=== PATIENT | male | born 2000 | race Caucasian/White ===

== ENCOUNTER 2018-05-08 04:55 | Inpatient (IN) | payer OTHER ==
[~2018-05-08] VITALS: Ht 180.3 cm; Wt 99.3 kg
[2018-05-08] VITALS (59 sets, daily range): BP systolic 59–219; BP diastolic 31–125
--- NOTE | 2018-05-08 04:55 | NUR ---
PT [facility] BLS. TAKEN TO BED 6
--- NOTE | 2018-05-08 05:00 | NUR ---
ASSUMED CARE OF PT AT THIS TIME. PT BIBA AND RECEIVED TO BED 6 VIA GURNEY. C/O ALOC AND DIAPHORESIS UPON WAKING X 30 MINUTES AGO. PT IS A&OX4, ANSWERS ALL QUESTIONS APPROPRIATELY, AND DENIES ANY NEURO COMPLAINTS, ANY CP, OR SOB. PATIENT STATES PAIN OF 0/10; VSS; PATIENT POSITIONED FOR COMFORT; HOB ELEVATED; BEDRAILS UP X2; BED DOWN. ER MD MADE AWARE OF PT STATUS. WILL CONTINUE TO MONITOR.
[2018-05-08] MEDS ORDERED: ONDANSETRON 4 MG/2 ML VIAL IVP ONE (05:05)
[2018-05-08] MEDS ORDERED: NACL 0.9% 1,000 ML IV ONE (05:05)
--- NOTE | 2018-05-08 05:16 | NUR ---
EKG PERFORMED AT BEDSIDE. PT COVERED IN GOWN. NORMAL SINUS RHYTHM
[2018-05-08 05:31] LABS: HEMATOCRIT 42.6 % (36-52); HEMOGLOBIN 14.4 g/dL (12.0-18.0); MEAN CORPUSCULAR HEMOGLOBIN 30 pg (27-31); MEAN CORPUSCULAR HGB CONC 34 g/dL (33-37); MEAN CORPUSCULAR VOLUME 88.8 fL (80-94); PLATELET COUNT (AUTO) 195 K/uL (140-450); RED BLOOD CELL COUNT(AUTO) 4.79 MIL/uL (4.20-6.10); RED CELL DISTRIBUTION WIDTH 13.1 % (11.6-13.7); WHITE BLOOD COUNT (AUTO) 9.1 K/uL (4.5-11.0)
[2018-05-08 05:35] LABS: APPEARANCE,URINE CLEAR (CLEAR); BILIRUBIN,URINE NEGATIVE (NEGATIVE); BLOOD, URINE 1+ (NEGATIVE); COLOR,URINE YELLOW (YELLOW); LEUKOCYTE ESTERASE ,URINE NEGATIVE (NEGATIVE); NITRITE, URINE NEGATIVE (NEGATIVE); UGLUCOSE TRACE (NEGATIVE)
[2018-05-08 05:41] LABS: BARBITURATE, URINE NEG. ng/ml (NEG <=200); BENZODIAZEPINE, URINE NEG. ng/mL (NEG <=200); CANNABINOID, URINE POS. ng/mL (NEG <=50); COCAINE, URINE NEG. ng/mL (NEG <=300); OPIATE, URINE NEG. ng/mL (NEG <=2000); PHENCYCLIDINE SCREEN,URINE NEG. ng/mL (NEG <=25)
[2018-05-08 05:48] LABS: ALBUMIN 4.6 g/dL (3.4-5.0); ANION GAP 20.3 (8-16); CARBON DIOXIDE 19.3 mmol/L (21-32); POTASSIUM 3.6 mmol/L (3.5-5.1); TOTAL BILIRUBIN 0.2 mg/dL (0.0-1.0)
[2018-05-08 05:53] LABS: RBC,URINE 0-5 (RARE) /HPF (0-5); WBC,URINE 0-5 (RARE) /HPF (0-5)
[2018-05-08 06:13] LABS: EOSINOPHILS % (MANUAL) 4 % (0-4); LYMPHOCYTES % (MANUAL) 25 % (20-46); MONOCYTES % (MANUAL) 5 % (5-12)
[2018-05-08] MEDS ORDERED: LORazepam 2 MG/ML VIAL IVP ONE ×4 (06:20→07:10)
--- NOTE | 2018-05-08 06:20 | NUR ---
PT HAD WITNESSED SZ X 1 MINUTE. RN, EMT, MD AT BEDSIDE, PT ADMINISTERED O2 VIA NRB MASK. SUCTION NEEDED. PT GIVEN IV ATIVAN PER MD ORDERS. WILL CONTINUE TO MONITOR.
--- NOTE | 2018-05-08 06:20 | NUR ---
Dr. Johnson evaluating patient at bedside.
--- NOTE | 2018-05-08 06:20 | NUR ---
GEORGIE GALVAN WAS CALLED. ATTENDED AND HELPED HOLD DOWN PT IN BED WITH RNS AND SECURITY. FAMILY AT BEDSIDE. PT ON FIO2 100% NRB MASK SPO2 95-98%.
[2018-05-08] MEDS ORDERED: LORazepam 2 MG/ML VIAL ONE ×2 (06:24→06:41)
--- NOTE | 2018-05-08 06:30 | NUR ---
PT EXTREMELY COMBATIVE IN POST-ICTAL STATE. PT IS ALTERED AND UNCOOPERATIVE. PT UNABLE TO FOLLOW SIMPLE COMMANDS. PT RESTRAINED X 4. PLEASE SEE RESTRAINT FLOW SHEET.
[2018-05-08] MEDS ORDERED: HALOPERIDOL IM 5 MG/ML VIAL ONE (06:35)
[2018-05-08] MEDS ORDERED: diphenhydrAMINE 50 MG/ML VIAL ONE ×2 (06:36→06:40)
[2018-05-08] MEDS ORDERED: HALOPERIDOL IM 5 MG/ML VIAL IM ONE ×2 (06:40→07:05)
[2018-05-08] MEDS ORDERED: diphenhydrAMINE 50 MG/ML VIAL IM ONE (06:40)
[2018-05-08] MEDS ORDERED: LORazepam 2 MG/ML VIAL IM/IVP ONE (06:40)
--- NOTE | 2018-05-08 07:08 | NUR ---
Dr. Blake evaluating patient at bedside.
--- NOTE | 2018-05-08 07:10 | NUR ---
REPORT GIVEN TO BIBI YEE TO ASSUME CARE.
[2018-05-08] MEDS ORDERED: SUCCINYLCHOLINE CHLORIDE 200 MG/10 ML VIAL IVP ONE (07:12)
[2018-05-08] MEDS ORDERED: ETOMIDATE 20 MG/10 ML VIAL IVP ONE (07:12)
--- NOTE | 2018-05-08 07:15 | NUR ---
ASSISTED WITH INTUBATION WITH MD JEWELL AND KELSEY PANDEY. PT IS INTUBATED WITH 7.5 ETT AT 26 CM AT LIP. SETTINGS CHARTED. ETT IS IN PLACE AND SECURED WITH ANCHORFAST. VENT IS CONNECTED TO RED OUTLET ALARMS AUDIBLE. AMBU BAG AT BEDSIDE. SXN'D SCANT AMT OF THIN CLEAR SECRETION. NO SOB OR DISTRESS NOTED.
[2018-05-08] MEDS ORDERED: PROPOFOL 200 MG/20 ML VIAL IV ONE (07:20)
[2018-05-08] MEDS ORDERED: PROPOFOL 1000 MG/100 ML PREMIX 100 ML IV ONE ×3 (07:27→13:20)
[2018-05-08] MEDS ORDERED: VANCOMYCIN 1,000 MG in DEXTROSE 5% 250 ML IV ONE (07:30)
[2018-05-08] MEDS ORDERED: DEXAMETHASONE 10 MG/ML VIAL IVP ONE (07:30)
--- NOTE | 2018-05-08 07:50 | NUR ---
ABG DRAWN WITH NO INCIDENT. RESULTS GIVEN VERBALLY TO MD JEWELL AND ON [facility].
--- NOTE | 2018-05-08 07:50 | NUR ---
ABG DRAWN WITH NO INCIDENT. RESULTS GIVEN VERBALLY TO MD JEWELL AND ON [facility] [facility].
--- NOTE | 2018-05-08 07:54 | NUR ---
PATIENT INTUBATED PER DR JEWELL PROPOFOL DRIP STARTED
[2018-05-08] MEDS ORDERED: VANCOMYCIN 1,000 MG VIAL ONE (08:03)
[2018-05-08] MEDS ORDERED: DEXAMETHASONE 4 MG/ML VIAL ONE (08:10)
[2018-05-08 08:24] LABS: SALICYLATE 3.4 mg/dL (2.8-20.0)
[2018-05-08 08:25] LABS: ACETAMINOPHEN < 0.5 ug/ml (10-30)
--- NOTE | 2018-05-08 08:30 | NUR ---
PATIENT TRANSFERRED TO RADIOLOGY FOR CT SCAN OF THE HEAD REMOVED FROM VENTILATOR PLACED ON A AMBU BAG TO INLINE SUCTION CATHETER/ENDOTRACHEAL TUBE WITH SUPPLEMENTAL OXYGEN AT 15 LPM VIA E-TANK WITH ADEQUATE PSI LEVEL AMBU BAG DEPRESSED EVERY 6 SECONDS HR 114 SATURATION 99% TOLERATED PROCEDURE WELL WITHOUT INCIDENT
--- NOTE | 2018-05-08 08:31 | NUR ---
Patient taken to CT via gurney with portable monitor. Accompanied by Tal RN, Ruslan RT, Samantha EMT, Nguyen machine stitcher, Rhianna copier repair technician
--- NOTE | 2018-05-08 08:39 | NUR ---
REPORTED GIVEN TO LEEANN MTZ.
[2018-05-08 08:46] LABS: CREATINE KINASE MB 3.3 ng/mL (0-3.6)
[2018-05-08] MEDS ORDERED: NACL 0.9% 250 ML IV ONE (08:55)
[2018-05-08] MEDS ORDERED: LIDOCAINE 1% 50 ML ONE (09:46)
[2018-05-08] MEDS ORDERED: LACTULOSE 20 GM/30 ML UDC NG ONE (10:20)
--- NOTE | 2018-05-08 10:33 | NUR ---
VENT SETTINGS: A/C VC VT 500ML FIO 70 RATE 14 FLOW 45 PEEP 5 PMAX 40
[2018-05-08 10:41] LABS: CSF GLUCOSE 114 mg/dL (40-70); CSF PROTEIN 53.7 mg/dL (15-45)
[2018-05-08] MEDS ORDERED: ACETAMINOPHEN 325 MG TAB PO PRN (10:55)
[2018-05-08] MEDS ORDERED: ONDANSETRON 4 MG/2 ML VIAL IVP PRN (10:55)
[2018-05-08] MEDS ORDERED: VANCOMYCIN PER PHARMACY MC PRN (10:55)
[2018-05-08] MEDS ORDERED: ALBUTEROL 0.083% 2.5 MG/3 ML NEBU IH PRN (10:55)
--- NOTE | 2018-05-08 10:57 | NUR ---
Patient being reevaluated by DR JEWELL at bedside.
--- NOTE | 2018-05-08 11:00 | NUR ---
FIO2 DECREASED TO 40%. SPO2 IS 100%. NO SOB OR DISTRESS NOTED.
--- NOTE | 2018-05-08 11:05 | NUR ---
Patient will be admitted to care of DR. GAUTHIER. Admited to ICU. Will go to rooM 5. Belongings list completed. Report to BIBI SIMS. pt still seems aggitated and vss at time of admit to icu.
--- NOTE | 2018-05-08 11:15 | NUR ---
RECEIVED PATIENT FROM ED. RECEIVED REPORT FROM ED NURSE. PATIENT SEDATED WITH PROPOFOL RUNNING AT 25MCG. 4POINT SOFT RESTRAINTS IN PLACE. SKIN WARM DRY AND INTACT. LUNGS CLEAR BILATERALLY. BOWEL SOUNDS PRESENT AND ACTIVE x4. VSS. MOTHER AND GIRLFRIEND AT BEDSIDE. WILL CONTINUE TO MONITOR.
--- NOTE | 2018-05-08 11:26 | NUR ---
VENT CHECKED. DECREASED FIO2 TO 60%. WILL CONTINUE TO MONITOR.
[2018-05-08] MEDS ORDERED: levETIRAcetam 1,000 MG in NACL 0.9% 100 ML IV SCH (11:55)
--- NOTE | 2018-05-08 12:00 | NUR ---
DR. GAUTHIER IN, SEEN AND EXAMINED PATIENT. WILL FOLLOW UP WITH ORDERS.
[2018-05-08] MEDS: DEXT 5% /NACL 0.9% 1,000 ML IV SCH ×2 (12:18→22:39)
--- NOTE | 2018-05-08 12:22 | NUR ---
UNABLE TO DO ABG BECAUSE PT IS HAVING EEG. WILL DO IT AFTER. NO SOB OR DISTRESS NOTED.
--- NOTE | 2018-05-08 12:27 | NUR ---
CUSTOMER TRAINER AT BEDSIDE
--- NOTE | 2018-05-08 13:05 | NUR ---
SENT A PAGE TO DR. GLASGOW REGARDING PROPOFOL DRIP. WILL AWAIT FOR CALL BACK.
--- NOTE | 2018-05-08 13:12 | NUR ---
DR. GLASGOW CALLED BACK WITH ORDERS TO START PATIENT ON FENTANYL DRIP INSTEAD AND ADDED VERSED 2MG IV PRN FOR AGITATION. ORDERS TRANSCRIBED AND CARRIED OUT.
[2018-05-08] MEDS ORDERED: MIDAZOLAM 2 MG/2 ML VIAL IV PRN (13:15)
[2018-05-08] MEDS: LORazepam 2 MG/ML VIAL IVP PRN ×3 (13:31→20:20)
--- NOTE | 2018-05-08 13:53 | NUR ---
ABG DONE WITH NO INCIDENT. RESULTS GIVEN VERBALLY TO MD GLASGOW. NO SOB OR DISTRESS NOTED. FAMILY AT BEDSIDE. WILL CONTINUE TO MONITOR.
--- NOTE | 2018-05-08 13:54 | NUR ---
FIO2 DECREASED TO 28 % SPO2 IS 100%
--- NOTE | 2018-05-08 14:00 | NUR ---
DR WHITTAKER AT BEDSIDE SPEAKING WITH PT FAMILY
[2018-05-08] MEDS: fentaNYL 1 MG in NACL 0.9% 80 ML IV SCH (15:09)
--- NOTE | 2018-05-08 15:30 | NUR ---
PT TAKEN OFF SOFT ANKLE RESTRAINTS. TOLERATING WELL. WILL CONTINUE TO MONITOR.
[2018-05-08] MEDS: VANCOMYCIN 1,250 MG in DEXTROSE 5% 250 ML IV SCH (16:19)
--- NOTE | 2018-05-08 19:17 | NUR ---
GAVE REPORT TO MAGALY FOR CONTINUITY OF CARE THROUGH THE NIGHT. PATIENT STABLE AT THIS TIME.
--- NOTE | 2018-05-08 19:30 | NUR ---
RECEIVED REPORT FROM LEVI MTZ AM SHIFT. PT IS SEDATED. PT INTUBATED,ETT TO VENT WITH VENT SETTING AC RATE 14,TV 400,FIO2 28% AND PEEP 5, NO S/S OF RESP DISTRESS AT THIS TIME, BILATERAL LUNGS CLEAR. SR ON MONITOR. IV TO RIGHT FOREARM NO 22 WITH FENTANYL RUNNING AT 93 MCG/HR TO KEEP RASS -1 AND D5% IN NS AT 100 CC/HR, IV LINE TO RIGHT FOOT NO 20 AND LEFT HAND NO 20. NO S/S OF INFILTRATION NOTED. PT IS NPO EXCEPT MEDS PER REPORT. NGT TO RIGHT NARES. SKIN WARM TO TOUCH.ABD SOFT NON DISTENDED. SKIN INTACT. F/C IN PLACE WITH YELLOW CLEAR URINE. GENTLE CARE GIVEN. KEPT PT CLEAN AND DRY. PT IS ON RESTRAIN D/T EPISODE OF AGITATION PER REPORT .CONT TO CLOSE MONITORING. Addendum: 05/08/18 at 1954 by Mackenzie Strickland RN TV [phone]
--- NOTE | 2018-05-08 20:10 | NUR ---
THE GIRL FRIEND COME TO VISIT. REMIND THE GIRL FRIEND TO LET PT REST AT THIS TIME.
--- NOTE | 2018-05-08 20:15 | NUR ---
PT IS AWAKE WHEN SAW THE GIRL FRIEND AND START TRYING TO GET OUT OF BED , PT IS WITH EPISODE AGITATION AND ANXIETY. ATIVAN 2MG IVP SLOWLY GIVEN.MONITOR PT CLOSELY. 2 NURSE HOLD PT ON BED AT THIS TIME.
--- NOTE | 2018-05-08 20:20 | NUR ---
PT MORE AGITATED AND CALLED FOR HELP. SECURITY COME TO HELP. ATIVAN GIVEN IVP SLOWLY ORDER FOR AGITATION. PT IS AT RISK TO SELF EXTUBATION.PT ON BOTH HAND RESTRAINT
[2018-05-08] MEDS: MORPHINE SULFATE 2 MG/ML SYR IVP PRN (20:30)
--- NOTE | 2018-05-08 20:30 | NUR ---
PLACED CODE MANCUSO PT IS VERY AGITATED. ER NURSE AND RT COME TO HELP .10 NURSE HOLD PT ON THE BED. PT IS VERY COMBATIVE DIAPHORETIC AND TACHYCARDIA . MORPHINE IV PUSH GIVEN ORDER.
[2018-05-08] MEDS ORDERED: MIDAZOLAM MDV 50 MG in NACL 0.9% 40 ML IV PRN (20:35)
--- NOTE | 2018-05-08 20:35 | NUR ---
PLACED CALLED TO DR WOODWARD SENIOR TELECOMMUNICATIONS ENGINEER FOR DR.SHIN MARIA EUGENIA ZUNIGA MD AWARE PT IS VERY AGITATED, PT SAID TO PULL THE ETT, PT IN HIGH RISK FOR SELFT EXTUBATION. 10 STAFF HOLDING PT IN THE BED AT THIS TIME. PER NO EXTUBATION AT THIS TIME. NEW ORDER TO START WITH VERSED DRIP PER PROTOCOL TO MAINTAIN RASS -1. MD AWARE PT ALREADY RECEIVED VERSED 2 MG IVP AND ATIVAN 2 MG IVP ALSO MORPHINE IVP ORDER. PT STILL COMBATIVE .
--- NOTE | 2018-05-08 20:45 | NUR ---
PT IS STILL COMBATIVE FROM ER COME TO HELP AND ASSESS PT. PT IS ON BOTH HAND RESTRAINT 10 STAFF HOLDING PT ON THE BED. PT VERY DIAPHORETIC,VERY HIGH RISH FOR EXTUBATION. DR RECIO GIVE ORDER TO GIVE PT VECURONIUM 10 MG IVP AND DILAUDID 1 MG IVP. AT THIS TIME.MEDS WERE GIVEN ORDER.
[2018-05-08] MEDS ORDERED: HYDROmorphone 1 MG/ML AMP ONE (20:47)
[2018-05-08] MEDS ORDERED: levETIRAcetam 500 MG in NACL 0.9% 100 ML IV SCH (21:00)
[2018-05-08] MEDS ORDERED: HYDROmorphone 1 MG/ML AMP IVP STA (21:11)
[2018-05-08] MEDS ORDERED: VECURONIUM 10 MG VIAL IVP ONE (21:15)
--- NOTE | 2018-05-08 21:20 | NUR ---
PT IS SEDATED AND CALM DOWN. IV LINE TO LEFT HAND WAS OUT DURING AGITATION NEW LINE INSERTED TO LEFT AC.T 101 AT THIS TIME. COOLING MEASURE GIVEN.PLACE COLD TOWEL ON FOREHEAD.AND CONTINUE TO MONITOR CLOSELY
[2018-05-08] MEDS: LACTULOSE 20 GM/30 ML UDC PR SCH (21:27)
[2018-05-08] MEDS ORDERED: levETIRAcetam 100 MG/ML VIAL IV ONE (21:27)
[2018-05-08] MEDS: levETIRAcetam 1,000 MG in NACL 0.9% 100 ML IV SCH (21:28)
--- NOTE | 2018-05-08 21:40 | NUR ---
TEMPERATURE CHECK WAS 99.0. CONTINUE COOLING MEASURE. KEPT CLEAN AND DRY.PT IS SEDATED RASS -1
--- NOTE | 2018-05-08 22:00 | NUR ---
NO TEMP AT THIS TIME T 98.5 CONTINUE TO MONITOR
--- NOTE | 2018-05-08 22:41 | NUR ---
CLARIFIED VERSED DRIP WAS GIVEN AT 1 MG/HR STARTING DOSE NOT 2 MG/HR. WILL TITRATE PER PROTOCOL AND PER PT NEED TOLERATED WELL.
[2018-05-09] VITALS (54 sets, daily range): BP systolic 95–158; BP diastolic 53–93
--- NOTE | 2018-05-09 | NUR ---
RASS+1 INCREASE THE VERSED TO 2 MG/HR. VANCOMYCIN IV ABT GIVEN ORDER.MOTHER AT BED SIDE.
[2018-05-09] MEDS: VANCOMYCIN 1,250 MG in DEXTROSE 5% 250 ML IV SCH (00:18)
[2018-05-09] MEDS: fentaNYL 1 MG in NACL 0.9% 80 ML IV SCH (00:23)
--- NOTE | 2018-05-09 02:10 | NUR ---
PT IS SEDATED RASS -1,MOTHER AT BEDSIDE
--- NOTE | 2018-05-09 04:00 | NUR ---
AM CARE GIVEN, ORAL CARE AND F/C GIVEN. PT IS ALERT AND ABLE TO MOUTH WORDS HIS NEEDS.KEPT CLEAN AND DRY.
--- NOTE | 2018-05-09 05:23 | NUR ---
PT HAS EPISODE OF ANXIETY ATIVAN GIVEN ORDER.
[2018-05-09] MEDS: LORazepam 2 MG/ML VIAL IVP PRN (05:31)
[2018-05-09 05:39] LABS: MAGNESIUM 2.4 mg/dL (1.8-2.4); PHOSPHORUS 4.8 mg/dL (2.5-4.9)
[2018-05-09] MEDS: DEXT 5% /NACL 0.9% 1,000 ML IV SCH ×2 (06:55→16:19)
--- NOTE | 2018-05-09 07:01 | NUR ---
ASHLEE PHARMACIST MADE AWARE THE VANCO TROUGH 30.9. PER ASHLEE JUST HOLD NEXT DOSE AT THIS TIME UNTIL FURTHER ORDER. REPORT GIVEN TO AM SHIFT. PT IS SLEEPING
--- NOTE | 2018-05-09 07:05 | NUR ---
RECEIVED BEDSIDE REPORT FROM HOT MILL ROLLER RN FOR CONTINUITY OF CARE. PATIENT IS SEDATED WITH FENTANYL AND VERSED, RASS-1 ORDERED, OPENS EYES TO NAME. SKIN IS INTACT, HE HAS PERIPHERAL IV SITES TO LEFT FA, 18 GAUGE, RIGHT FA, 22 GAUGE, AND RIGHT FOOT 20 GAUGE, ALL ASYMPTOMATIC AND INTACT. PATIENT IS PLACED ON ETT TO VENT, SETTINGS ARE AC/VC, RATE 14, FIO2 28, VT 500, PEEP 5, BREATHING EVEN AND UNLABORED. SR ON MONITOR, PATIENT DENIES PAIN. PATIENT HAS NG TUBE TO RIGHT NARES IN PLACE, AUSCULTATED AND PATENT, NO RESIDUAL NOTED. PATIENT HAS LONGO CATHETER IN PLACE TO YELLOW CLEAR URINE. SCDS IN PLACE. HOB IS 30 DEGREES IN A LOW POSITION. NO SIGNS OF DISTRESS NOTED AT THIS TIME. SOFT RESTRAINTS ASSESSED AND IN PLACE. ALL SAFETY PRECAUTIONS ASSESSED AND IN PLACE. CALL LIGHT WITHIN REACH, WILL CONTINUE TO MONITOR.
[2018-05-09 07:49] LABS: HEMATOCRIT 41.7 % (36-52); HEMOGLOBIN 13.8 g/dL (12.0-18.0); MEAN CORPUSCULAR HEMOGLOBIN 30 pg (27-31); MEAN CORPUSCULAR HGB CONC 33 g/dL (33-37); MEAN CORPUSCULAR VOLUME 90.3 fL (80-94); PLATELET COUNT (AUTO) 212 K/uL (140-450); RED BLOOD CELL COUNT(AUTO) 4.62 MIL/uL (4.20-6.10); RED CELL DISTRIBUTION WIDTH 13.6 % (11.6-13.7); WHITE BLOOD COUNT (AUTO) 26.3 K/uL (4.5-11.0)
[2018-05-09 07:59] LABS: LYMPHOCYTES % (MANUAL) 4 % (20-46); MONOCYTES % (MANUAL) 4 % (5-12)
--- NOTE | 2018-05-09 08:23 | NUR ---
PATIENT'S BROTHER AT BEDSIDE, NO SIGNS OF DISTRESS NOTED AT THIS TIME, WILL CONTINUE TO MONITOR
[2018-05-09] MEDS: levETIRAcetam 1,000 MG in NACL 0.9% 100 ML IV SCH ×2 (08:39→21:00)
[2018-05-09] MEDS: LACTULOSE 20 GM/30 ML UDC PR SCH ×2 (08:39→21:11)
[2018-05-09] MEDS: ENOXAPARIN 40 MG/0.4 ML SYR SUBQ SCH (08:49)
[2018-05-09] MEDS: cefTRIAXone 2,000 MG in DEXTROSE 5% 100 ML IV SCH (09:24)
--- NOTE | 2018-05-09 09:40 | NUR ---
PATIENT EXTUBATED SELF, DR. GLASGOW NOTIFIED, STATES TO KEEP PATIENT EXTUBATED AND ORDER CHEST XRAY. PATIENT O2 SAT IS 93%, NO SIGNS OF DISTRESS AT THIS TIME. WILL CONTINUE TO MONITOR.
[2018-05-09 09:42] LABS: ANION GAP 9.3 (8-16); CARBON DIOXIDE 25.4 mmol/L (21-32); POTASSIUM 4.7 mmol/L (3.5-5.1)
--- NOTE | 2018-05-09 09:44 | NUR ---
GOT CALL FROM RN THAT PT EXTUBATED HIMSELF. PT SPO2 IS 93% NO WOB OR DISTRESS NOTE. PT CALM. FAMILY AT BEDSIDE. DR GREENFIELD PAGED AND PER DR GREENFIELD TO LEAVE PT EXTUBATED. PT'S SPO2 IS 93% CLEAR BREATH SOUNDS. VENT IS STANDBY AT BEDSIDE. AMBU BAG AT BEDSIDE. WILL CONTINUE TO MONITOR.
--- NOTE | 2018-05-09 10:15 | NUR ---
SONG WRITER AT BEDSIDE, PATIENT PRESENTS NO SIGNS OF DISTRESS AT THIS TIME
--- NOTE | 2018-05-09 10:19 | NUR ---
DR. GLASGOW IN TO SEE AND EXAMINE PATIENT. WILL FOLLOW UP ON ANY ORDERS.
--- NOTE | 2018-05-09 10:26 | NUR ---
PATIENT HAS BEEN SCREENED AND CATEGORIZED MODERATE NUTRITION RISK. PATIENT WILL BE SEEN WITHIN 3-5 DAYS OF ADMISSION. 05/10/18 05/12/[address]
--- NOTE | 2018-05-09 11:36 | NUR ---
PT IS ASLEEP COMFORTABLY IN BED. MOM AT BEDSIDE. NO SOB OR DISTRESS NOTED. PT ON ROOM AIR. SPO2 97% HR 96. BILATERAL CLEAR BREATH SOUNDS. WILL CONTINUE TO MONITOR.
--- NOTE | 2018-05-09 12:47 | NUR ---
DR. GAUTHIER IN TO SEE AND EXAMINE PATIENT, UPDATED ON PATIENT'S CONDITION. WILL FOLLOW UP WITH ANY ORDERS.
--- NOTE | 2018-05-09 13:13 | NUR ---
PATIENT IS ASLEEP, AROUSABLE TO NAME, DENIES ANY PAIN AT THIS TIME. WILL CONTINUE TO MONITOR
--- NOTE | 2018-05-09 14:23 | NUR ---
CM NOTE ADMISSION CHART REVIEW DONE. INITIAL REVIEW FAXED TO [facility] [phone]
--- NOTE | 2018-05-09 18:00 | NUR ---
TRANSFERRED PATIENT TO [facility] VIA GURNEY, PATIENT PLACED ON ORCHID SUPERINTENDENT, NO SIGNS OF DISTRESS NOTED. ENDORSED CONTINUITY OF CARE AT BEDSIDE TO [facility] RN, PATIENT STABLE AT THIS TIME
--- NOTE | 2018-05-09 18:01 | NUR ---
PATIENT ARRIVED ON [facility] UNIT, ABLE TO AMBULATE FROM ICU BED TO MST BED. FMAILY MEMBERS AT BEDSIDE. NO DISTRESS NOTED. DENIES ANY PAIN AT THIS TIME. AAOX4, CALM, COOPERATIVE, SKIN INTACT. IV SITE INTACT, PATENT, AND INFUSING IVF PER MD ORDERS. LUNGS CTA ON ALL LOBES. ABDOMEN SOFT, NON-DISTENDED. ORIENTED PATIENT TO ROOM AND CALL LIGHT. REVIEWED PLAN OF CARE WITH PATIENT. PATIENT VERBALIZED UNDERSTANDING. SAFETY MEASURES IN PLACE, FALL PREVENTIONS IN PLACE, SEIZURE PRECAUTIONS IN PLACE. WILL CONTINUE TO MONITOR.
--- NOTE | 2018-05-09 19:15 | NUR ---
* ST PVE NOTE * Clinician attempting to complete Bedside Dysphagia and oral mechanism exams at bedside but pt s/p self-decannulation 05/09/18 at 09:40. As per [employer] safety protocol, nsg education completed regarding it being most beneficial for pt that swallow evaluation be completed at least 24 hours s/p extubation in order to allow true and false VF to return to baseline to avoid increased risk of penetration or aspiration. Nsg informed that bedside dysphagia evaluation will be completed tomorrow/Sunday after 09:40, w/nsg verbalizing understanding and agreement w/clinician's recommendations. PVE Time In/Out: 18:25 - 18:40
--- NOTE | 2018-05-09 19:25 | NUR ---
GAVE REPORT TO THERAPIST OCCUPATIONAL NURSE FOR CONTINUITY OF CARE. PATIENT IN STABLE CONDITION.
--- NOTE | 2018-05-09 19:25 | NUR ---
RECEIVED REPORT AT BEDSIDE FORM BAILEY MTZ DAYSHIFT NURSE FOR CONTINUITY OF CARE. PT IN LOW BED WITH ALL FALLS AND SEIZURE PRECAUTIONS IN PLACE.PT HAS NO S/S OF PAIN OR DISTRESS NOTED, FAMILY AT BEDSIDE.
[2018-05-09] MEDS: PANTOPRAZOLE 40 MG INJ VIAL IVP SCH (21:06)
--- NOTE | 2018-05-09 21:30 | NUR ---
PT AO X 4 IN LOW BED WITH ALL SEIZURES AND FALLS PRECAUTIONS IN PLACE. IV SITE R F/A 22 GAUGE INTACT AND RUNNING D5 WITH N/S AT 120MLS/HR. PT GIVEN ALL ORDRED MEDS, PROTONIX, LACTULOSE AND 1GM OF KEPPRA ADDED TO 100MLS OF N/S. IV RUNNING AT 220MLS/HR. NO ADVERSE EFFECTS NOTED. PT DENIES PAIN, HE AMBULATED STEADILY TO BATHROOM. ALL REQUESTED NEEDS PROVIDED. PT REMINDED TO STAY NPO EXCEPT ICE CHIPS.
[2018-05-09] MEDS ORDERED: levETIRAcetam 100 MG/ML VIAL IV ONE (21:31)
[2018-05-10] VITALS: BP 118/72
[2018-05-10] MEDS: DEXT 5% /NACL 0.9% 1,000 ML IV SCH ×2 (00:18→10:02)
--- NOTE | 2018-05-10 00:30 | NUR ---
PT N BED ALL SEIZURE AND FALLS PRECAUTIONS IN PLACE. IV SITE IN TACT AND FLUSHED PATENT. V/S FOLLOWS T 99.2 P 95 R 95 B/P 118/72 02 95 ON ROOM AIR.
[2018-05-10] MEDS: MORPHINE SULFATE 2 MG/ML SYR IVP PRN (00:31)
--- NOTE | 2018-05-10 01:30 | NUR ---
PT C/O 8/10 PAIN IN BACK AND PT FEELS RESTLESS AND CANT SLEEP. PT GIVEN PRN IVP MORPHINE. WILL MONITOR FOR EFFECT.
--- NOTE | 2018-05-10 02:30 | NUR ---
PT ASLEEP NO S/S OF PAIN OR DISTRESS, BUT PT EASILY AROUSABLE . PT WOKE UP AND REQUESTED ICE CHIPS. PT HAS NO C/O OF PAIN OR DISTRESS NOTED.
[2018-05-10 04:00] VITALS: BP 129/86
--- NOTE | 2018-05-10 04:30 | NUR ---
PT ASLEEP NO S/S OF PAIN OR DISTRESS SEIZURE PRECAUTIONS IN PLACE, NO SEIZURE ACTIVITY NOTED. ICE CHIPS PROVIDED REQUESTED. CALL MARION IN REACH AND IV SITE FLUSHED PATENT.
--- NOTE | 2018-05-10 07:15 | NUR ---
GAVE REPORT TO BAILEY MTZ AT BEDSIDE, PT IN STABLE CONDITION.
--- NOTE | 2018-05-10 07:16 | NUR ---
RECEIVED REPORT FROM GAME ARTIST NURSE. PATIENT SITTING DOWN IN BED COMFORTABLY. NO DISTRESS NOTED. DENIES ANY PAIN AT THIS TIME. AAOX4, CALM, COOPERATIVE, SKIN COLOR APPROPRIATE TO ETHNICITY, WARM TO TOUCH. SKIN INTACT. IV SITE INTACT, PATENT, AND INFUSING IVF PER MD ORDERS. LUNGS CTA ON ALL LOBES. ABDOMEN SOFT, NON-DISTENDED. REVIEWED PLAN OF CARE WITH PATIENT. PATIENT VERBALIZED UNDERSTANDING. SAFETY MEASURES IN PLACE, CALL LIGHT WITHIN REACH. WILL CONTINUE TO MONITOR.
[2018-05-10 08:00] VITALS: BP 125/77
[2018-05-10] MEDS: ENOXAPARIN 40 MG/0.4 ML SYR SUBQ SCH (09:00)
[2018-05-10] MEDS: LACTULOSE 20 GM/30 ML UDC PR SCH (09:00)
[2018-05-10 09:02] LABS: BASOPHILS % (AUTO) 0.2 % (0.0-2.0); EOSINOPHILS % (AUTO) 0.2 % (0.0-4.0); HEMATOCRIT 37.1 % (36-52); HEMOGLOBIN 12.6 g/dL (12.0-18.0); LYMPHOCYTES # (AUTO) 1.3 K/uL (2.0-11.5); LYMPHOCYTES % (AUTO) 8.6 % (20.5-51.1); MEAN CORPUSCULAR HEMOGLOBIN 30 pg (27-31); MEAN CORPUSCULAR HGB CONC 34 g/dL (33-37); MEAN CORPUSCULAR VOLUME 88.8 fL (80-94); MONOCYTES # (AUTO) 1.2 K/uL (0.8-1.0); NEUTROPHILS # (AUTO) 12.9 K/uL (1.8-7.7); PLATELET COUNT (AUTO) 172 K/uL (140-450); RED BLOOD CELL COUNT(AUTO) 4.18 MIL/uL (4.20-6.10); WHITE BLOOD COUNT (AUTO) 15.5 K/uL (4.5-11.0)
[2018-05-10 09:19] LABS: ANION GAP 11.5 (8-16); CARBON DIOXIDE 23.1 mmol/L (21-32); CREATININE 1.9 mg/dL (0.7-1.3); POTASSIUM 3.6 mmol/L (3.5-5.1)
[2018-05-10 09:23] LABS: MAGNESIUM 1.8 mg/dL (1.8-2.4); PHOSPHORUS 3.9 mg/dL (2.5-4.9)
--- NOTE | 2018-05-10 09:45 | NUR ---
PATIENT PULLED OUT OLD IV LINE. NEW IV LINE INSERTED ON LEFT FOREARM #22 ON SECOND ATTEMPT. PATIENT TOLERATED PROCEDURE WELL. SCHEDULED MEDICATIONS DUE GIVEN. SAFETY MEASURES IN PLACE, CALL LIGHT WITHIN REACH. WILL CONTINUE TO MONITOR.
[2018-05-10] MEDS: levETIRAcetam 1,000 MG in NACL 0.9% 100 ML IV SCH (10:17)
[2018-05-10] MEDS: PANTOPRAZOLE 40 MG INJ VIAL IVP SCH (10:27)
[2018-05-10] MEDS ORDERED: VANCOMYCIN 1GM/DEXT 5% PREMIX 200 ML IV SCH (11:00)
--- NOTE | 2018-05-10 11:00 | NUR ---
ST AT BEDSIDE PERFORMING EVAL. SCHEDULED ANTIBIOTICS GIVEN. WILL CONTINUE TO MONITOR.
[2018-05-10] MEDS: cefTRIAXone 2,000 MG in DEXTROSE 5% 100 ML IV SCH (11:03)
--- NOTE | 2018-05-10 11:14 | NUR ---
WATCH REPAIR PERSON note (bedside swallow evaluation) [phone]. Bedside swallow evaluation completed, please see report for details. WATCH REPAIR PERSON provided pt and pt's mother (at bedside) with education regarding purpose of evaluation and rationale for recommendations. Both verbalized understanding and agreement at this time. Recommend: 1) regular textures 2) thin liquids 3) general caution while eating solids to avoid reinjuring tongue during chewing 4) no further WATCH REPAIR PERSON intervention indicated at this time. Physician may reorder if further concerns arise, as appropriate. WATCH REPAIR PERSON d/w RN (Riley) prior to and following bedside swallow evaluation completion. G-codes: [id number] ARIADNE NOMS level 7.
[2018-05-10 12:00] VITALS: BP 128/84
--- NOTE | 2018-05-10 13:00 | NUR ---
PATIENT SITTING ON BED WITH PHONE. NO DISTRESS NOTED. CONDITION UNCHANGED. WILL CONTINUE TO MONITOR.
--- NOTE | 2018-05-10 15:35 | NUR ---
CM NOTE CONCURRENT REVIEW FAXED TO [facility] [phone]
--- NOTE | 2018-05-10 16:29 | NUR ---
DISCHARGE INSTRUCTIONS PROVIDED TO PATIENT IN PREFERRED LANGUAGE OF AFGHAN, FAMILY MEMBERS PRESENT AT BEDSIDE. FOLLOW-UP VISITS, NEW/CHANGED MEDICATION REGIMEN INSTRUCTIONS GIVEN, DIET REGIMEN AND DISEASE PROCESS/MANAGEMENT OF SEIZURES PROVIDED. ANSWERED ALL OF PATIENT'S/FAMILY QUESTIONS. PATIENT/FAMILY VERBALIZED COMPLETE UNDERSTANDING. IV SITE REMOVED WITH MINIMAL BLOOD AND LUMEN COMPLETELY INTACT. ID BANDS REMOVED. ESCORTED PATIENT DOWN TO LOBBY VIA STEADY AMBULATION. PATIENT DISCHARGED HOME AT THIS TIME VIA PRIVATE VEHICLE IN STABLE CONDITION.
== END 2018-05-10 16:30 | disposition home or self-care (01) | DRG 133 ==
LOC: MED 04:55 → MIC 10:55 → MTU 05-09 17:50
PROVIDERS: ADMIT Hospitalist; ATTEND Hospitalist
PROC: 5A1945Z Respiratory Ventilation, 24-96 Consecutive Hours (ICD-10-PCS; principal; 2018-05-08)
PROC: 009U3ZX Drainage of Spinal Canal, Percutaneous Approach, Diagnostic (ICD-10-PCS; 2018-05-08)
PROC: 0BH17EZ Insertion of Endotracheal Airway into Trachea, Via Natural or Artificial Opening (ICD-10-PCS; 2018-05-08)
DX: J96.01 Acute respiratory failure with hypoxia (principal); G93.41 Metabolic encephalopathy; E72.20 Disorder of urea cycle metabolism, unspecified; R56.9 Unspecified convulsions; E87.2 Acidosis; F12.90 Cannabis use, unspecified, uncomplicated; F17.200 Nicotine dependence, unspecified, uncomplicated; R45.1 Restlessness and agitation; F19.10 Other psychoactive substance abuse, uncomplicated; N28.9 Disorder of kidney and ureter, unspecified
CPT/HCPCS: 31500; 36415; 36600; 62270; 70450; 71045; 80048; 80053; 80202; 80305; 81001; 82140; 82550; 82553; 82803; 82948; 83605; 83735; 84100; 84157; 84484; 85025; 85610; 85730; 86171; 86790; 87040; 87070; 87081; 87086; 92610; 93005; 94002; 94003; 95816; 96365; 96366; 96372; 96375; 99291; 99292; C9113; G0480; G0482; J0330; J0696; J1100; J1170; J1200; J1630; J1650; J1953; J2001; J2060; J2250; J2270; J2405; J2704; J3010; J3370; J3490; J7042; J7060; Q0092

== ENCOUNTER 2018-05-12 21:37 | Emergency (ER) | payer OTHER ==
[~2018-05-12] VITALS: Ht 180.3 cm; Wt 94.8 kg
[2018-05-12 21:57] VITALS: BP 157/88
--- NOTE | 2018-05-12 21:59 | NUR ---
TO LOBBY A/W BED, PAUL LEACH NOTED
[2018-05-12 22:00] VITALS: BP 157/88
--- NOTE | 2018-05-12 23:18 | NUR ---
PT ambulated to ER bed 6
--- NOTE | 2018-05-13 00:07 | NUR ---
PT BIB SELF FOR HEADACHE STARTING YESTERDAY . PT STATES HE WAS ADMITTED TO HOSPITAL 3 DAYS AGO FOR SEIZURE AND WAS INTUBATED WAS INSTRUCTED TO RETURN TO ER IF HAVING HEADACHES. PT HAS TAKEN IBUPROFEN AT HOME W/ MINIMAL RELIEF, LAST DOSE WAS "MAYBE 3-5 PM". PT IS AWAKE AND ACTING APPROPRIATE, PERRL, C/O NAUSEA. PT SITTING IN BEDSIDE CHAIR, APPEARS TO BE IN NO ACUTE DISTRESS. PT DENEIS ANY SEIZURES AT HOME SINCE D/C LAST. PT CURRENTLY NOT ON ANY HOME RX.
--- NOTE | 2018-05-13 01:47 | NUR ---
PT WANTS TO LEAVE, LWBS AT THIS TIME.
[2018-05-13] MEDS ORDERED: KETOROLAC 30 MG/ML VIAL IM ONE (01:55)
== END 2018-05-13 01:47 | disposition left against medical advice (07) ==
LOC: MED 21:37
DX: R51 Headache (principal)
CPT/HCPCS: 99281

== ENCOUNTER 2019-01-29 18:51 | Emergency (ER) | payer MEDICAID, OTHER ==
[~2019-01-29] VITALS: Ht 180.3 cm; Wt 117.0 kg
[2019-01-29 19:10] VITALS: BP 125/80
--- NOTE | 2019-01-29 19:29 | NUR ---
PATIENT PRESENTS TO ED WITH C/O LEFT TOE PAIN X 1 MONTH. PATIENT DENIES ANY TRAUMA OR INJURY. PATIENT STATES UPDATED WITH IMMUNIZATIONS . PT DENIES N/V/D; SKIN IS PINK/WARM/DRY; AAOX4 WITH EVEN AND STEADY GAIT; LUNGS CLEAR BL; HR EVEN AND REGULAR; PT DENIES ANY FEVER, CP, SOB, OR COUGH AT THIS TIME; PATIENT STATES PAIN OF 10/10 AT THIS TIME; VSS; PATIENT POSITIONED FOR COMFORT; HOB ELEVATED; BEDRAILS UP X2; BED DOWN. ER MD MADE AWARE OF PT STATUS.
--- NOTE | 2019-01-29 20:05 | NUR ---
ZAC Emanuel at bedside evaluating patient
--- NOTE | 2019-01-29 20:20 | NUR ---
Patient discharged with v/s stable. Written and verbal after care instructions given and explained. Patient alert, oriented and verbalized understanding of instructions. Ambulatory with steady gait. All questions addressed prior to discharge. ID band removed. Patient advised to follow up with PMD. Rx of KEFLEX, PREDNISONE, IBUPROFEN given. Patient educated on indication of medication including possible reaction and side effects. Opportunity to ask questions provided and answered.
[2019-01-29 20:23] VITALS: BP 125/80
== END 2019-01-29 20:20 | disposition home or self-care (01) ==
LOC: MED 18:51
DX: L60.0 Ingrowing nail (principal)
CPT/HCPCS: 99283

== ENCOUNTER 2020-06-07 13:19 | Emergency (ER) | payer SELFPAY ==
[~2020-06-07] VITALS: Ht 177.8 cm; Wt 94.8 kg
[2020-06-07 13:28] VITALS: BP 140/92
--- NOTE | 2020-06-07 13:35 | NUR ---
PT AMBULATED TO BED #12
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
[2020-06-07] MEDS ORDERED: IBUPROFEN 400 MG TAB PO ONE (14:25)
--- NOTE | 2020-06-07 14:32 | NUR ---
X-Ray at bedside.
--- NOTE | 2020-06-07 15:44 | NUR ---
PT WAS D/C WITH VSS. PT WAS INSTRUCTED TO FOLLOW UP WITH PCP AND EDUCATED ON IN HOME CARE. PT RECIEVED RESULTS OF CT. PT WAS ABLE TO AMBULATE OUT OF ER. PT WAS GIVEN A MEDICATION PRESCRIPTION.
[2020-06-07 15:47] VITALS: BP 140/92
== END 2020-06-07 15:47 | disposition home or self-care (01) ==
LOC: MED 13:19
DX: S43.492A Other sprain of left shoulder joint, initial encounter (principal); S20.219A Contusion of unspecified front wall of thorax, initial encounter; S80.02XA Contusion of left knee, initial encounter; F12.10 Cannabis abuse, uncomplicated; V49.9XXA Car occupant (driver) (passenger) injured in unspecified traffic accident, initial encounter; Y93.89 Activity, other specified; Y92.89 Other specified places as the place of occurrence of the external cause; Y99.8 Other external cause status
CPT/HCPCS: 71045; 73030; 73562; 99284; Q0092